=== PATIENT | female | born 1995 | race African-American/Black ===

== ENCOUNTER 2016-09-15 10:18 | Emergency (ER) | payer OTHER ==
[~2016-09-15] VITALS: Ht 165.1 cm; Wt 60.0 kg
[~2016-09-15 10:18] MED LIST: Z.0.BCPILL PO
--- NOTE | 2016-09-15 11:03 | PD ---
HPI Chief Complaint: Injury Time Seen by Provider: 11:00 Travel History International Travel<30 days: No Contact w/Intl Traveler<30days: No Traveled to known affect area: No History of Present Illness HPI 21-year-old Afro-[place] Citizen female coming into the emergency Department with plates of left radial wrist pain status post fall from [place] last evening. Patient states her injury. Patient has decreased range of motion secondary to discomfort and swelling. She denies numbness, tingling, or overt weakness. She has no known drug allergies. PFSH Past Medical History ?: Unknown LMP: CONTROL Social History Alcohol Use: No Tobacco Use: No Substance Use: No Allergies-Medications (Allergen,Severity, Reaction): Coded Allergies: No Known Allergies (Unverified , 05/09/15) Reported Meds & Prescriptions Reported Meds & Active Scripts Active Reported Control Pills (Miscellaneous Medication) Tab 1 Tab PO DIRECTED Review of Systems Except as stated in HPI: all other systems reviewed are Neg General / Constitutional: No: Fever Eyes: No: Visual changes HENT: No: Headaches Cardiovascular: No: Chest Pain or Discomfort Respiratory: No: Shortness of Breath Gastrointestinal: No: Abdominal Pain Genitourinary: No: Dysuria Musculoskeletal: Positive: Arthralgias, Limited ROM, Pain Skin: No Rash Neurologic: No: Weakness Psychiatric: No: Depression Endocrine: No: Polydipsia Hematologic/Lymphatic: No: Easy Bruising Physical Exam Narrative GENERAL: Patient appears in no acute distress. SKIN: Warm and dry. Normal color. Normal turgor. No ecchymosis or abrasion. HEAD: Atraumatic. Normocephalic. EYES: Pupils equal and round. No scleral icterus. No injection or drainage. ENT: No nasal bleeding or discharge. Mucous membranes pink and moist. Pharynx is normal. NECK: Trachea midline. Neck is supple nontender. CARDIOVASCULAR: Regular rate and rhythm. RESPIRATORY: No accessory muscle use. Clear to auscultation. Breath sounds equal bilaterally. MUSCULOSKELETAL: Extremities without clubbing, cyanosis, or edema. No obvious deformities. Patient has mild swelling over the left distal radius and snuffbox region of the wrist. Wool Supplier strength is limited secondary to discomfort. No obvious goose neck or other obvious deformity. Proximal forearm and elbow and shoulder are normal on the left side. NEUROLOGICAL: Awake and alert. No obvious cranial nerve deficits. Motor grossly within normal limits. Five out of 5 muscle strength in the arms and legs. Normal speech. PSYCHIATRIC: Appropriate mood and affect; insight and judgment normal. Data Data Orders Wrist, Complete ([id number]) (09/15/16 11:05) Ice/Cold Pack (09/15/16 11:05) [facility] Medical Decision Making Medical Screen Exam Complete: Yes Emergency Medical Condition: Yes Differential Diagnosis Fall from rollerskates. FOOSH injury to the left wrist. Possible fracture versus sprain. Narrative Course Patient is medically stable at time of exam. X-ray of the left wrist is ordered. X-ray shows soft tissue tissue swelling but no fracture per radiologist. Patient is placed in a Velcro wrist splint for comfort. She is given ibuprofen 600 mg 4 times a day #40. She is use ice and gentle stretching. She can take Tylenol as well for pain. She should follow with her primary care physician or return to emergency department if symptoms do not improve over the next week. Repeat x-ray may be warranted if symptoms continue. Diagnosis Primary Impression: Sprain of left wrist Qualified Code: S63.502A - Sprain of left wrist, initial encounter Referrals: Primary Care Physician Patient Instructions: General Instructions, Wrist Sprain (ED) Departure Forms: Work Release Enter return to work date: Sep 16, 2016 Special Instructions: Patient has limited use of left wrist and hand secondary to wrist sprain for the next 7 days. She needs to wear splint at all times during that time. Additional Instructions: X-ray shows soft tissue tissue swelling but no fracture per radiologist. Patient is placed in a Velcro wrist splint for comfort. She is given ibuprofen 600 mg 4 times a day #40. She is use ice and gentle stretching. She can take Tylenol as well for pain. She should follow with her primary care physician or return to emergency department if symptoms do not improve over the next week. Repeat x-ray may be warranted if symptoms continue. Med/Other Pt SpecificInfo: Prescription(s) given Disposition: 01 DISCHARGE HOME Condition: Stable Andrez Amos Sep 15, 2016 11:03
[2016-09-15] MEDS ORDERED: IBUP-232 PO (12:50)
[2016-09-15] MEDS ORDERED: ACET325T PO (12:50)
--- NOTE | 2016-09-15 13:00 | RADRPT ---
EXAM DATE/TIME: 09/15/2016 11:27 [facility] COMPARISON: No previous studies available for comparison. INDICATIONS : Left wrist pain, fall while rollerskating. MEDICAL HISTORY : None. SURGICAL HISTORY : None. ENCOUNTER: Initial ACUITY: 2 days PAIN SCORE: 8/10 LOCATION: Left posterior wrist FINDINGS: Three view examination of the left wrist demonstrates no soft tissue swelling, dislocation, or fractu re. The carpal bones are in normal alignment. The joint spaces are maintained. Bony mineralization is normal. CONCLUSION: 1. Negative examination of the wrist. Adolfo Diop MD on September 15, 2016 at 12:58 Board Certified Radiologist. This report was verified electronically.
== END 2016-09-15 12:59 | disposition home or self-care (01) ==
LOC: NEPB 10:18
DX: S63.502A Unspecified sprain of left wrist, initial encounter (principal); V00.121A Fall from non-in-line roller-skates, initial encounter; Y93.51 Activity, roller skating (inline) and skateboarding; Y92.9 Unspecified place or not applicable
CPT/HCPCS: 73110; 99283; L3908